=== PATIENT | female | born 1985 | race African-American/Black ===

== ENCOUNTER 2017-09-26 12:35 | Emergency (ER) | payer MEDICARE ==
[~2017-09-26 12:35] MED LIST: ISOVUE-370 76%-LOCM 1 ML ONE
[2017-09-26 13:14] LABS: #Basophils 0.1 thou/uL (0.0-0.2); #Eosinphils 0.1 thou/uL (0.0-0.7); #Lymphocytes 2.5 thou/uL (1.20-3.40); #Monocytes 0.6 thou/uL (0.11-0.59); #Neutrophils 3.5 thou/uL (1.40-6.50); %Basophils 1.9 % (0.0-1.0); %Eosinophils 1.7 % (0.0-10.0); %Lymphocytes 36.5 % (21.0-51.0); %Monocytes 9.3 % (0.0-10.0); %Neutrophils 50.6 % (42.0-75.0); Hemoglobin 13.5 g/dL (12.0-16.0); Mean Corpuscular HGB CONC 32.6 g/dL (32.0-36.0); Mean Corpuscular Hemoglobin 26.3 pg (27.0-31.0); Mean Corpuscular Volume 80.9 fL (78.0-98.0); Mean Platelet Volume 6.4 fL (7.4-10.4); Platelet Count 325 thou/uL (130-400); RBC Distribution Width 15.7 % (11.5-14.5); Red Blood Cell (RBC) Count 5.11 mill/uL (4.20-5.40); White Blood Cell (WBC) Count 6.9 thou/uL (4.8-10.8)
[2017-09-26] MEDS ORDERED: Ondansetron ODT 4 MG TAB ONE (13:24)
[2017-09-26 13:36] LABS: ALT (SGPT) 17 U/L (8-55); AST (SGOT) 20 U/L (5-34); Alkaline Phosphatase 96 U/L (40-150); Anion Gap 14 mmol/L (10-20); BUN (Urea Nitrogen) 7 mg/dL (7.0-18.7); Bilirubin, Total 0.4 mg/dL (0.2-1.2); Calc. Creatinine Clearance 0 mL/min (70-130); Calcium 8.9 mg/dL (7.8-10.44); Carbon Dioxide 23 mmol/L (22-29); Chloride 108 mmol/L (98-107); Estimated GFR-MDRD Greater than 90; Globulin 3.6 g/dL (2.4-3.5); Glucose 96 mg/dL (70-105); Lipase 29 U/L (8-78); Potassium 3.7 mmol/L (3.5-5.1); Protein, Total 7.6 g/dL (6.0-8.3); Sodium 141 mmol/L (136-145)
[2017-09-26 13:52] LABS: Bilirubin Negative (Negative); Blood, Urine Negative (Negative); Clarity TURBID (Clear); Glucose, Urine (Dipstick) Negative (Negative); Leukocyte Small (Negative); Nitrite Negative (Negative); Protein, Urine (Dipstick) Trace mg/dL (Neg-Trace); Specific Gravity, Urine 1.025 (1.002-1.036); Urobilinogen 0.2 mg/dL (0.2-1.0); pH, Urine 5.5 (5.0-9.0)
[2017-09-26 13:56] LABS: Pregnancy Test - Urine (BHCG) Negative (Negative); Pregu Control Background? CLEAR/WHITE (CLR/WHITE); Pregu Control Bar Appear? YES (CONTROL BAR); Specific Gravity 1.025 (1.002-1.036)
[2017-09-26 14:01] LABS: RBC/HPF 0-3 HPF (0-3); WBC/HPF 0-3 HPF (0-3)
[2017-09-26 14:02] LABS: Bacteria/HPF Rare-Few HPF (None Seen); Hyaline Casts/LPF NONE SEEN LPF (0-3 Hyaline); Squamous Epithelial 21-50 HPF (0-3); Trichomonas/HPF 2+ HPF (None Seen)
[2017-09-26] MEDS ORDERED: Ketorolac Tromethamine 30 MG/ML VIAL ONE (14:10)
--- NOTE | 2017-09-26 15:37 | CT ---
CT ABDOMEN AND PELVIS WITH IV CONTRAST: Date: 09/26/17 HISTORY: Right lower quadrant abdominal pain. FINDINGS: The lung bases are clear. The liver, spleen, pancreas, adrenal glands, and kidneys are normal. No free air or lymphadenopathy seen. A tiny amount of free fluid is seen in the pelvis. Uterus and ov marleny are present. The small bowel loops are not abnormally dilated. A normal appearing appendix is p resent. The bony structures are unremarkable. A few scattered diverticula are present in the colon. N o pericolonic inflammatory changes are seen. IMPRESSION: No evidence of appendicitis. POS: [facility]
== END 2017-09-26 16:08 | disposition home or self-care (01) ==
LOC: ERS 12:35
DX: R10.32 Left lower quadrant pain (principal); R10.31 Right lower quadrant pain; Z87.891 Personal history of nicotine dependence
CPT/HCPCS: 74177; 80053; 81003; 81015; 81025; 83690; 85025; 96361; 96374; 96375; 96376; J1885; J2270; Q0162

== ENCOUNTER 2017-12-03 08:33 | Outpatient (CLI) | payer MEDICARE ==
--- NOTE | 2017-12-04 12:43 | NM ---
NUCLEAR MEDICINE THYROID SCAN AND UPTAKE: DATE: 12/04/17. HISTORY: A 32-year-old female with other specified abnormal findings of blood chemistry. R79.89, abnormal TSH. TECHNIQUE: 260 microcuries of I-123 administered p.o. Thyroid scintigraphy obtained in 3 views. Six-hour and 24-hour quantitative radioiodine uptake studies performed. FINDINGS: The radioiodine uptake is fairly homogeneous in the left and right lobes, with no definite hot or col d nodules identified. The 6-hour uptake is 8% (normal range is 6-18%). The 24-hour uptake is 18% (normal range is 10-30%). IMPRESSION: Normal. POS: [facility]
== END 2017-12-03 08:34 | disposition home or self-care (01) ==
LOC: NM 08:33
PROVIDERS: ATTEND Family Medicine
DX: R94.6 Abnormal results of thyroid function studies (principal)
CPT/HCPCS: 78014; A9516

== ENCOUNTER 2018-01-16 13:25 | Emergency (ER) | payer MEDICARE ==
--- NOTE | 2018-01-16 14:10 | RAD ---
2 VIEW CHEST: Date: 01/16/18 INDICATION: Chest pain. COMPARISON: 03/30/11. FINDINGS: There is no consolidation, effusion, or pneumothorax. Cardiac silhouette is stable. IMPRESSION: No focal consolidation. POS: [facility]
[2018-01-16] MEDS ORDERED: Acetaminophen 500 MG TAB ONE (14:12)
[2018-01-16] MEDS ORDERED: Ketorolac Tromethamine 30 MG/ML VIAL ONE (14:12)
[2018-01-16] MEDS ORDERED: Ondansetron HCl/PF 4 MG/2 ML Vial ONE (14:13)
--- NOTE | 2018-01-18 08:35 | EKG ---
Test Reason : CHESTPAIN Blood Pressure : / mmHG Vent. Rate : 092 BPM Atrial Rate : 092 BPM P-R Int : 150 ms QRS Dur : 088 ms QT Int : 356 ms P-R-T Axes : 052 -07 000 degrees QTc Int : 440 ms Normal sinus rhythm Possible Left atrial enlargement Borderline ECG Confirmed by KIMANI CASTAÑEDA ([id number]) on 01/18/2018 8:34:47 AM Referred By: Confirmed By:KIMANI CASTAÑEDA
== END 2018-01-16 15:31 | disposition home or self-care (01) ==
LOC: ERS 13:25
DX: R05 Cough (principal); R11.2 Nausea with vomiting, unspecified; R51 Headache; Z87.891 Personal history of nicotine dependence
CPT/HCPCS: 71046; 93005; 96361; 96374; 96375; J1885; J2405

== ENCOUNTER 2018-03-12 14:26 | Outpatient (CLI) | payer MEDICARE | END 2018-03-12 14:27 | disposition home or self-care (01) | LOC: BICMAMMO 14:26 | DX: Z12.31 Encounter for screening mammogram for malignant neoplasm of breast (principal) | CPT/HCPCS: 77063; 77067 ==

== ENCOUNTER 2018-04-29 12:52 | Emergency (ER) | payer MEDICARE ==
--- NOTE | 2018-04-29 15:23 | ULT ---
DOPPLER VENOUS ULTRASOUND OF THE RIGHT LOWER EXTREMITY: INDICATION: History of right lower extremity soft tissue edema and swelling predominantly on the dorsal aspect of the foot. TECHNIQUE: Kothari scale, color Doppler, and vascular duplex with spectral analysis was performed of the deep venou s structures of right lower extremity. The common femoral vein, superficial femoral vein, popliteal v ein, posterior tibial vein, proximal greater saphenous, and proximal profunda veins were assessed bonnie aterally. FINDINGS: There is normal compression, flow, and augmentation seen within the deep venous structures of the rig ht lower extremity. There is extensive edema involving the subcutaneous tissues of the dorsal foot. There is a suggestio n of a heterogeneous fluid collection within the subcutaneous tissues of the dorsal aspect of the marilee t in the region of interest measuring approximately 1.3 x 3 cm possibly reflective of a small abscess . IMPRESSION: 1. No evidence of deep vein thrombosis in the right lower extremity. 2. Suspected abscess within the dorsal aspect of the foot. Recommend consideration for an MRI of th e right foot with and without contrast for improved characterization. POS: [facility]
--- NOTE | 2018-04-29 15:24 | ULT ---
Please see the separately dictated, concurrently performed right lower right lower extremity DVT ultr asound evaluation for details concerning the soft tissue ultrasound evaluation of the dorsalis pedis of the right foot. POS: [facility]
== END 2018-04-29 15:30 | disposition home or self-care (01) ==
LOC: ERS 12:52
DX: L03.115 Cellulitis of right lower limb (principal); L02.611 Cutaneous abscess of right foot
CPT/HCPCS: 76999

== ENCOUNTER 2018-10-02 01:25 | Emergency (ER) | payer MEDICARE ==
[2018-10-02] MEDS ORDERED: Morphine 4 MG/ML VIAL ONE (01:54)
[2018-10-02] MEDS ORDERED: Ondansetron PF 4 MG/2 ML Vial ONE (01:55)
[2018-10-02 01:56] LABS: #Basophils 0.1 thou/uL (0.0-0.2); #Eosinphils 0.1 thou/uL (0.0-0.7); #Lymphocytes 3.8 thou/uL (1.20-3.40); #Monocytes 0.8 thou/uL (0.11-0.59); #Neutrophils 5.2 thou/uL (1.40-6.50); %Eosinophils 0.7 % (0.0-10.0); %Lymphocytes 38.4 % (21.0-51.0); %Monocytes 8.2 % (0.0-10.0); %Neutrophils 51.8 % (42.0-75.0); Hemoglobin 12.3 g/dL (12.0-16.0); Mean Corpuscular HGB CONC 31.6 g/dL (32.0-36.0); Mean Corpuscular Hemoglobin 24.5 pg (27.0-31.0); Mean Corpuscular Volume 77.6 fL (78.0-98.0); Mean Platelet Volume 7.5 fL (7.4-10.4); Platelet Count 296 thou/uL (130-400); RBC Distribution Width 17.5 % (11.5-14.5); Red Blood Cell (RBC) Count 5.04 mill/uL (4.20-5.40)
[2018-10-02 02:06] LABS: BHCG - Serum Negative (NEGATIVE); Pregs Control Background? CLEAR/WHITE (CLR/WHITE); Pregs Control Bar Appear? YES (CONTROL BAR)
[2018-10-02 02:14] LABS: Bacteria/HPF 1+ HPF (None Seen); Bilirubin Negative (Negative); Blood, Urine Negative (Negative); Clarity Clear (Clear); Glucose, Urine (Dipstick) Normal (Negative); Leukocyte 75 Leu/uL (Negative); Nitrite Negative (Negative); Protein, Urine (Dipstick) Negative (Neg-Trace); RBC/HPF 0-3 HPF (0-3); Squamous Epithelial 0-3 HPF (0-3); Urobilinogen Normal mg/dL (Less than 2)
[2018-10-02 02:52] LABS: ALT (SGPT) 24 U/L (8-55); AST (SGOT) 27 U/L (5-34); Albumin 4.4 g/dL (3.5-5.0); Alkaline Phosphatase 103 U/L (40-150); Anion Gap 15 mmol/L (10-20); BUN (Urea Nitrogen) 10 mg/dL (7.0-18.7); Bilirubin, Total 0.2 mg/dL (0.2-1.2); Calc. Creatinine Clearance 0 mL/min (70-130); Calcium 9.7 mg/dL (7.8-10.44); Carbon Dioxide 20 mmol/L (22-29); Chloride 106 mmol/L (98-107); Estimated GFR-MDRD Greater than 90; Globulin 3.5 g/dL (2.4-3.5); Glucose 114 mg/dL (70-105); Lipase 205 U/L (8-78); Potassium 4.1 mmol/L (3.5-5.1); Protein, Total 7.9 g/dL (6.0-8.3); Sodium 137 mmol/L (136-145)
--- NOTE | 2018-10-02 07:33 | CT ---
PRELIMINARY REPORT/[facility]/EMERGENCY AFTER HOURS PROCEDURE: EXAM: CT Abdomen and Pelvis Without Contrast EXAM DATE/TIME: 10/02/2018 2:18 AM CLINICAL HISTORY: 33 years old, female; Abdominal pain; Right; Prior surgery; Surgery type: Surgical history of tubal l igation; Patient HX: 33 y/o F presents to ED C/O sudden onset of flank pain, with onset at approx 2330 last night. No recent incr activity or exercise. No recent heavy lifting. Denies n/v/d, fever, c hills, urinary symptoms. TECHNIQUE: Imaging protocol: Axial computed tomography images of the abdomen and pelvis without contrast. COMPARISON: No relevant prior studies available. FINDINGS: Liver: Normal. No mass. Gallbladder and bile ducts: Normal. No calcified stones. No ductal dilation. Pancreas: Normal. No ductal dilation. Spleen: Normal. No splenomegaly. Adrenals: Normal. No mass. Kidneys and ureters: Normal. No hydronephrosis. Stomach and bowel: No bowel wall thickening or intestinal obstruction. Appendix: Normal appendix. Intraperitoneal space: Normal. No free air. No significant fluid collection. Vasculature: Normal. No abdominal aortic aneurysm. Lymph nodes: Normal. No enlarged lymph nodes. Bladder: Unremarkable as visualized. Reproductive: Unremarkable as visualized. Bones/joints: No acute fracture. No dislocation. Soft tissues: Unremarkable. IMPRESSION: No acute findings. Thank you for allowing us to participate in the care of your patient. Dictated and Authenticated by: Bob Bradshaw MD 10/02/2018 2:43 AM Central Time ([place] & [place]) FINAL REPORT Exam: ABDOMEN AND PELVIC CT SCAN WITHOUT IV CONTRAST: Emergency after exam TIME: 2:21 AM. DATE: 10/02/2018. Heterogeneous fatty changes within the liver with some areas of fat sparing. No CT evidence for acute appendicitis. No renal calculus or obstruction. No other significant acute process. This report is in agreement with a preliminary report. Transcribed Date/Time: 10/02/2018 7:44 AM
== END 2018-10-02 03:52 | disposition home or self-care (01) ==
LOC: ERS 01:25
DX: R10.9 Unspecified abdominal pain (principal); F17.210 Nicotine dependence, cigarettes, uncomplicated
CPT/HCPCS: 74176; 80053; 81003; 81015; 83690; 84703; 85025; 96361; 96374; 96375; J2270; J2405

== ENCOUNTER 2018-12-23 08:26 | Emergency (ER) | payer MEDICARE ==
[2018-12-23 08:52] LABS: #Basophils 0.1 thou/uL (0.0-0.2); #Eosinphils 0.1 thou/uL (0.0-0.7); #Lymphocytes 2.6 thou/uL (1.20-3.40); %Basophils 1.3 % (0.0-1.0); %Eosinophils 0.8 % (0.0-10.0); %Lymphocytes 29.4 % (21.0-51.0); %Neutrophils 57.5 % (42.0-75.0); Hemoglobin 13.5 g/dL (12.0-16.0); Mean Corpuscular HGB CONC 31.9 g/dL (32.0-36.0); Mean Corpuscular Hemoglobin 25.5 pg (27.0-31.0); Mean Corpuscular Volume 79.8 fL (78.0-98.0); Mean Platelet Volume 6.9 fL (7.4-10.4); Platelet Count 335 thou/uL (130-400); RBC Distribution Width 16.6 % (11.5-14.5); Red Blood Cell (RBC) Count 5.29 mill/uL (4.20-5.40); White Blood Cell (WBC) Count 8.7 thou/uL (4.8-10.8)
[2018-12-23 09:10] LABS: ALT (SGPT) 17 U/L (8-55); AST (SGOT) 19 U/L (5-34); Albumin 4.4 g/dL (3.5-5.0); Alkaline Phosphatase 103 U/L (40-110); Anion Gap 11 mmol/L (10-20); BUN (Urea Nitrogen) 9 mg/dL (7.0-18.7); Bilirubin, Total 0.3 mg/dL (0.2-1.2); Calc. Creatinine Clearance 0 mL/min (70-130); Calcium 9.5 mg/dL (7.8-10.44); Carbon Dioxide 20 mmol/L (22-29); Chloride 107 mmol/L (98-107); Estimated GFR-MDRD Greater than 90; Globulin 3.7 g/dL (2.4-3.5); Glucose 103 mg/dL (70-105); Lipase 29 U/L (8-78); Potassium 4.2 mmol/L (3.5-5.1); Protein, Total 8.1 g/dL (6.0-8.3); Sodium 134 mmol/L (136-145)
[2018-12-23] MEDS ORDERED: Morphine 4 MG/ML VIAL ONE ×3 (09:10→11:46)
[2018-12-23 09:15] LABS: Bilirubin Negative (Negative); Blood, Urine Negative (Negative); Clarity Turbid (Clear); Glucose, Urine (Dipstick) Normal (Negative); Leukocyte 250 Leu/uL (Negative); Mucous/LPF Rare LPF (<2+); Nitrite Negative (Negative); Protein, Urine (Dipstick) 30 mg/dL (Neg-Trace)
[2018-12-23 09:28] LABS: Pregnancy Test - Urine (BHCG) Negative (Negative); Pregu Control Background? CLEAR/WHITE (CLR/WHITE); Pregu Control Bar Appear? YES (CONTROL BAR); Specific Gravity 1.031 (1.002-1.036)
[2018-12-23 09:33] LABS: Bacteria/HPF 1+ HPF (None Seen); Trichomonas/HPF Rare HPF (None Seen)
[2018-12-23] MEDS ORDERED: Ondansetron PF 4 MG/2 ML Vial ONE (09:40)
[2018-12-23] MEDS ORDERED: Ketorolac Tromethamine 30 MG/ML VIAL ONE (09:43)
[2018-12-23] MEDS ORDERED: Lorazepam 2 MG/ML VIAL ONE ×2 (09:51→11:45)
[2018-12-23] MEDS ORDERED: cefTRIAXone\\ROCEPHIN 1 GM VIAL ONE (10:33)
[2018-12-23] MEDS ORDERED: Sodium Chloride 0.9% 100 ML ONE (10:33)
--- NOTE | 2018-12-23 10:50 | CT ---
CT ABDOMEN AND PELVIS WITHOUT CONTRAST STONE PROTOCOL: Date: 12/23/18 HISTORY: Right flank pain. COMPARISON: CT stone protocol dated 10/02/18. FINDINGS: Lung bases are clear. No pericardial effusion. No nephroureterolithiasis or hydroureteronephrosis. No secondary evidence of a recently passed stone. The appendix is visualized and is normal. No dilated loops of large or small bowel. Aortoiliac contour is normal. Noncontrast evaluation of the spleen, pancreas, and adrenal glands are unremarkable. Mild hepatic steatosis. No acute osseous abnormality. IMPRESSION: 1. No nephroureterolithiasis or hydroureteronephrosis. No secondary evidence of a recently passed st one. 2. Mild hepatic steatosis. 3. Normal appendix. POS: [facility]
[2018-12-23] MEDS ORDERED: HYDROmorphone 0.5 MG/0.5 ML SYRINGE ONE (13:30)
== END 2018-12-23 14:15 | disposition home or self-care (01) ==
LOC: ERS 08:26
DX: N12 Tubulo-interstitial nephritis, not specified as acute or chronic (principal); A59.9 Trichomoniasis, unspecified; F17.210 Nicotine dependence, cigarettes, uncomplicated
CPT/HCPCS: 36415; 74176; 80053; 81003; 81015; 81025; 83690; 85025; 96365; 96366; 96372; 96375; 96376; J0696; J1170; J1885; J2060; J2270; J2405; J3490

== ENCOUNTER 2019-02-03 07:05 | Emergency (ER) | payer MEDICARE ==
[2019-02-03] MEDS ORDERED: Ondansetron ODT 4 MG TAB ONE (07:21)
[2019-02-03] MEDS ORDERED: Metoclopramide HCl 10 MG/2 ML VIAL ONE (07:50)
[2019-02-03] MEDS ORDERED: diphenhydrAMINE 50 MG/ML VIAL ONE (07:50)
[2019-02-03 07:53] LABS: #Basophils 0.1 thou/uL (0.0-0.2); #Eosinphils 0.1 thou/uL (0.0-0.7); #Lymphocytes 2.1 thou/uL (1.20-3.40); #Monocytes 0.8 thou/uL (0.11-0.59); #Neutrophils 4.2 thou/uL (1.40-6.50); %Basophils 1.6 % (0.0-1.0); %Eosinophils 0.9 % (0.0-10.0); %Lymphocytes 28.6 % (21.0-51.0); %Neutrophils 57.9 % (42.0-75.0); Mean Corpuscular HGB CONC 32.3 g/dL (32.0-36.0); Mean Corpuscular Volume 80.5 fL (78.0-98.0); Mean Platelet Volume 6.9 fL (7.4-10.4); Platelet Count 273 thou/uL (130-400); RBC Distribution Width 16.7 % (11.5-14.5); White Blood Cell (WBC) Count 7.3 thou/uL (4.8-10.8)
[2019-02-03 08:06] LABS: Pregnancy Test - Urine (BHCG) Negative (Negative); Pregu Control Background? CLEAR/WHITE (CLR/WHITE); Pregu Control Bar Appear? YES (CONTROL BAR); Specific Gravity 1.019 (1.002-1.036)
--- NOTE | 2019-02-03 08:23 | CT ---
CT Brain WO Con History: Headache Comparison: None. Findings: No acute hemorrhage or infarct. No midline shift or mass effect. Ventricular size and extra -axial CSF spaces are normal. Calvarium is intact. Paranasal sinuses and mastoids are clear. Impression: No acute intracranial abnormality.
[2019-02-03 08:31] LABS: ALT (SGPT) 15 U/L (8-55); AST (SGOT) 19 U/L (5-34); Albumin 4.1 g/dL (3.5-5.0); Alkaline Phosphatase 100 U/L (40-110); Anion Gap 11 mmol/L (10-20); BUN (Urea Nitrogen) 9 mg/dL (7.0-18.7); Bilirubin, Total 0.3 mg/dL (0.2-1.2); Calc. Creatinine Clearance 0 mL/min (70-130); Calcium 8.8 mg/dL (7.8-10.44); Carbon Dioxide 23 mmol/L (22-29); Chloride 106 mmol/L (98-107); Estimated GFR-MDRD Greater than 90; Globulin 3.4 g/dL (2.4-3.5); Glucose 94 mg/dL (70-105); Potassium 4.1 mmol/L (3.5-5.1); Protein, Total 7.5 g/dL (6.0-8.3); Sodium 136 mmol/L (136-145)
[2019-02-03] MEDS ORDERED: Lidocaine 1% w/Epinephrine 1:100K 20 ML VIAL ONE (08:34)
== END 2019-02-03 10:03 | disposition left against medical advice (07) ==
LOC: ERS 07:05
DX: I10 Essential (primary) hypertension (principal); R51 Headache; R11.2 Nausea with vomiting, unspecified; F17.210 Nicotine dependence, cigarettes, uncomplicated
CPT/HCPCS: 36415; 70450; 80053; 81025; 85025; 93005; 96365; 96366; 96375; J1200; J2765; Q0162

== ENCOUNTER 2019-02-06 11:57 | Emergency (ER) | payer MEDICARE ==
[2019-02-06] MEDS ORDERED: Acetaminophen 500 MG TAB ONE (12:06)
[2019-02-06] MEDS ORDERED: Magnesium 2 GM/50 ML BAG (IN WATER) ONE (13:59)
[2019-02-06] MEDS ORDERED: methylPREDNISolone Sod Succ/PF 125 MG/2 ML VIAL ONE (13:59)
[2019-02-06] MEDS ORDERED: Metoclopramide HCl 10 MG/2 ML VIAL ONE (13:59)
[2019-02-06] MEDS ORDERED: diphenhydrAMINE 50 MG/ML VIAL ONE (13:59)
[2019-02-06] MEDS ORDERED: Lidocaine 1% (PF) 30 ML VIAL ONE (14:58)
[2019-02-06] MEDS ORDERED: Lorazepam 2 MG/ML VIAL ONE (15:07)
[2019-02-06 16:15] LABS: Color Of CSF Supernatant COLORLESS (Colorless); Tube # 2; Unspun CSF Color COLORLESS (Colorless)
[2019-02-06 16:28] LABS: CSF, Glucose 56 mg/dl (40-70); CSF, Protein 40 mg/dL (15-40)
[2019-02-06 16:36] LABS: CSF Source CSF; Clarity Clear (Clear); Tube # 1; Tube # 3
== END 2019-02-06 17:25 | disposition home or self-care (01) ==
LOC: ERS 11:57
DX: R51 Headache (principal); F17.210 Nicotine dependence, cigarettes, uncomplicated
CPT/HCPCS: 82945; 84157; 87070; 87205; 89051; J1200; J2001; J2060; J2765; J2930; J3475

== ENCOUNTER 2019-10-26 10:24 | Outpatient (CLI) | payer MEDICARE ==
--- NOTE | 2019-10-26 10:52 | RAD ---
XR Chest Pa Lat STANDARD HISTORY: Chest pain on breathing COMPARISON: 05/12/2018 FINDINGS: The heart size is normal. The lungs are well expanded without focal areas of consolidation, pneumothorax or pleural effusions. IMPRESSION: No radiographic evidence of acute cardiopulmonary process.
== END 2019-10-26 10:25 | disposition home or self-care (01) ==
LOC: BICRAD 10:24
PROVIDERS: ATTEND Family Medicine
DX: R07.1 Chest pain on breathing (principal)
CPT/HCPCS: 36415; 71046; 80053; 80061; 83036

== ENCOUNTER 2020-01-21 13:30 | Outpatient (CLI) | payer OTHER | END 2020-01-21 13:31 | disposition home or self-care (01) | LOC: DTY/OP 13:30 | PROVIDERS: ATTEND Surgery | DX: E66.01 Morbid (severe) obesity due to excess calories (principal) | CPT/HCPCS: 97802 ==

== ENCOUNTER 2020-03-03 10:22 | Outpatient (CLI) | payer MEDICARE ==
[2020-03-03 17:15] LABS: SARS-CoV-2 MS2 Positive; SARS-CoV-2 N Gene Negative; SARS-CoV-2 S Gene Negative; SARS-CoV-2 by NAA Not Detected (NotDetected); SARS-CoV-2 orf1ab Negative
== END 2020-03-03 10:23 | disposition home or self-care (01) ==
LOC: LABBT 10:22
PROVIDERS: ATTEND Surgery
DX: Z20.828 Contact with and (suspected) exposure to other viral communicable diseases (principal)
CPT/HCPCS: 87635; U0003

== ENCOUNTER 2020-03-06 08:19 | Outpatient (CLI) | payer MEDICARE ==
--- NOTE | 2020-03-06 09:53 | RAD ---
DOUBLE CONTRAST UPPER GI INDICATION: Dysphagia Fluoroscopic time: 3.2 minutes TECHNIQUE: Thin barium, thick barium and effervescent crystals were utilized for double contrast uppe r GI. FINDINGS: [employer] image: The lung bases are clear. Bowel gas pattern is unobstructed. No suspicious calcification s are evident. No acute osseous abnormality is noted. Upper GI: The esophagus demonstrated normal mucosal pattern, contour and motility. No intraluminal m ass or stricture is identified. No reflux was identified. The stomach and proximal small bowel had a normal appearance. The 12.5 mm barium tablet passed without difficulty. IMPRESSION: 1. Normal exam.
== END 2020-03-06 08:20 | disposition home or self-care (01) ==
LOC: RAD 08:19
PROVIDERS: ATTEND Surgery
DX: R13.10 Dysphagia, unspecified (principal)
CPT/HCPCS: 74246

== ENCOUNTER 2020-05-17 11:15 | Inpatient (IN) | payer MEDICARE ==
[2020-05-22] MEDS ORDERED: Heparin 5,000 UNITS/ML VIAL ONE (09:43)
[2020-05-22] MEDS ORDERED: Fentanyl 100 MCG/2 ML VIAL ONE ×4 (10:06→14:45)
[2020-05-22] MEDS ORDERED: Morphine 4 MG/ML VIAL ONE (10:06)
[2020-05-22] MEDS ORDERED: Labetalol HCl 100 MG/20 ML VIAL ONE (10:12)
[2020-05-22] MEDS ORDERED: Glycopyrrolate 0.2 MG/ML 5 ML SYRINGE ONE (10:12)
[2020-05-22] MEDS ORDERED: Lidocaine 1% PF 5 ML VIAL ONE (10:12)
[2020-05-22] MEDS ORDERED: Dexamethasone 20 MG/5 ML VIAL ONE (10:12)
[2020-05-22] MEDS ORDERED: PROPOFOL 200 MG/20 ML VIAL ONE (10:12)
[2020-05-22] MEDS ORDERED: Rocuronium Bromide 10 MG/ML (10ML VIAL) ONE (10:12)
[2020-05-22] MEDS ORDERED: Ondansetron PF 4 MG/2 ML Vial ONE (10:12)
[2020-05-22] MEDS ORDERED: XYLOCAINE 2%-EPI 1:100,000 20 ML VIAL ONE (10:14)
[2020-05-22] MEDS ORDERED: Bupivacaine 0.25% HCL 30 ML VIAL ONE (10:14)
[2020-05-22] MEDS ORDERED: Midazolam HCl 2 mg/2 ml Vial ONE ×2 (11:39→14:14)
[2020-05-22] MEDS ORDERED: PROPOFOL 40 ML ONE (13:33)
[2020-05-22] MEDS ORDERED: Dextrose 5% in Water 1,000 ML IV PRN (14:00)
[2020-05-22] MEDS ORDERED: diphenhydrAMINE 50 MG/ML VIAL IVP PRN ×2 (14:00→14:22)
[2020-05-22] MEDS ORDERED: hydrALAZINE 20 MG/ML VIAL SLOW IVP PRN (14:00)
[2020-05-22] MEDS ORDERED: Hydrocodone-Acetamin 15 ML UDCUP PO PRN ×2 (14:00→14:26)
[2020-05-22] MEDS ORDERED: Dextrose 50% Abboject 50 ML SYRINGE SLOW IVP PRN (14:00)
[2020-05-22] MEDS ORDERED: Promethazine HCl 25 MG/ML VIAL IM PRN ×3 (14:00→14:23)
[2020-05-22] MEDS ORDERED: Ondansetron PF 4 MG/2 ML Vial IVP PRN ×2 (14:00→14:22)
[2020-05-22] MEDS ORDERED: SUGAMMADEX SODIUM 200 MG/2 ML VIAL ONE (14:01)
[2020-05-22] MEDS ORDERED: diphenhydrAMINE 25 MG CAP PO PRN (14:22)
[2020-05-22] MEDS ORDERED: diphenhydrAMINE 50 MG/ML VIAL IM PRN (14:22)
[2020-05-22] MEDS ORDERED: Zolpidem Tartrate 5 MG TAB PO PRN (14:22)
[2020-05-22] MEDS ORDERED: Naloxone HCl 0.4 mg/ml Vial IV PRN (14:22)
[2020-05-22] MEDS ORDERED: fentaNYL Citrate/PF 2,000 MCG in Sodium Chloride 0.9% 60 ML IV PRN (14:22)
[2020-05-22] MEDS ORDERED: HYDROmorphone 2 MG/ML VIAL SLOW IVP PRN (14:23)
[2020-05-22] MEDS ORDERED: Ondansetron HCl/PF 4 MG/2 ML Vial IVP PRN (14:23)
[2020-05-22] MEDS ORDERED: Promethazine HCl 25 MG/ML VIAL SLOW IVP PRN (14:23)
[2020-05-22] MEDS ORDERED: Communication Order-Pharmacy FS SCH (14:30)
[2020-05-22] MEDS ORDERED: Promethazine HCl 25 MG/ML VIAL ONE (14:33)
[2020-05-22] MEDS ORDERED: HYDROmorphone 2 MG/ML VIAL ONE (15:04)
[2020-05-22] MEDS ORDERED: D5 1/2 NS w/20 mEq KCL 1,000 ML ONE (17:15)
[2020-05-22] MEDS: D5 1/2 NS w/20 mEq KCL 1,000 ML IV SCH ×2 (19:24→21:32)
[2020-05-22] MEDS: Enoxaparin Sodium 40 MG/0.4 ML SYRINGE SC SCH (20:01)
[2020-05-22 22:12] VITALS: BMI 39.7
[2020-05-23] MEDS: D5 1/2 NS w/20 mEq KCL 1,000 ML IV SCH ×2 (01:43→10:11)
[2020-05-23 06:18] LABS: #Lymphocytes 1.9 thou/uL (1.20-3.40); #Monocytes 1.4 thou/uL (0.11-0.59); #Neutrophils 13.7 thou/uL (1.40-6.50); %Basophils 0.2 % (0.0-1.0); %Eosinophils 0.1 % (0.0-10.0); %Lymphocytes 11.3 % (21.0-51.0); %Monocytes 8.3 % (0.0-10.0); Hemoglobin 11.5 g/dL (12.0-16.0); Mean Corpuscular HGB CONC 32.4 g/dL (32.0-36.0); Mean Corpuscular Hemoglobin 26.6 pg (27.0-31.0); Mean Corpuscular Volume 81.9 fL (78.0-98.0); Mean Platelet Volume 7.3 fL (7.4-10.4); Platelet Count 217 thou/uL (130-400); RBC Distribution Width 14.9 % (11.5-14.5); Red Blood Cell (RBC) Count 4.33 mill/uL (4.20-5.40); White Blood Cell (WBC) Count 17.1 thou/uL (4.8-10.8)
[2020-05-23 06:31] LABS: Anion Gap 9 mmol/L (10-20); BUN (Urea Nitrogen) 8 mg/dL (7.0-18.7); Calc. Creatinine Clearance 193 mL/min (70-130); Calcium 8.2 mg/dL (7.8-10.44); Carbon Dioxide 24 mmol/L (22-29); Chloride 104 mmol/L (98-107); Glucose 124 mg/dL (70-105); Potassium 3.9 mmol/L (3.5-5.1); Sodium 133 mmol/L (136-145)
[2020-05-23] MEDS: Pantoprazole 40 MG VIAL IVP SCH (08:49)
[2020-05-23] MEDS ORDERED: FLU VACC QS2020-21(6MOS UP)/PF 60 MCG/0.5 ML SYRINGE IM ONE (09:00)
[2020-05-23] MEDS: Hydrocodone-Acetamin 15 ML UDCUP PO PRN ×4 (10:13→22:22)
[2020-05-23] MEDS ORDERED: Fentanyl 100 MCG/2 ML VIAL SLOW IVP PRN (14:37)
[2020-05-23] MEDS: Ketorolac Tromethamine 30 MG/ML VIAL IVP PRN (15:24)
[2020-05-23] MEDS: Enoxaparin Sodium 40 MG/0.4 ML SYRINGE SC SCH (20:29)
[2020-05-23] MEDS: Fentanyl 100 MCG/2 ML VIAL SLOW IVP PRN (22:10)
[2020-05-24] MEDS: D5 1/2 NS w/20 mEq KCL 1,000 ML IV SCH ×2 (02:04→15:22)
[2020-05-24] MEDS: Ketorolac Tromethamine 30 MG/ML VIAL IVP PRN ×4 (02:08→23:42)
[2020-05-24] MEDS: Hydrocodone-Acetamin 15 ML UDCUP PO PRN ×5 (04:08→21:34)
[2020-05-24 06:48] LABS: #Basophils 0.1 thou/uL (0.0-0.2); #Lymphocytes 1.6 thou/uL (1.20-3.40); #Neutrophils 6.6 thou/uL (1.40-6.50); %Basophils 0.6 % (0.0-1.0); %Eosinophils 0.3 % (0.0-10.0); %Lymphocytes 16.7 % (21.0-51.0); %Monocytes 10.9 % (0.0-10.0); %Neutrophils 71.6 % (42.0-75.0); Hemoglobin 11.7 g/dL (12.0-16.0); Mean Corpuscular HGB CONC 32.4 g/dL (32.0-36.0); Mean Corpuscular Hemoglobin 26.8 pg (27.0-31.0); Mean Corpuscular Volume 82.7 fL (78.0-98.0); Mean Platelet Volume 7.3 fL (7.4-10.4); Platelet Count 188 thou/uL (130-400); RBC Distribution Width 14.9 % (11.5-14.5); Red Blood Cell (RBC) Count 4.34 mill/uL (4.20-5.40); White Blood Cell (WBC) Count 9.3 thou/uL (4.8-10.8)
[2020-05-24 07:06] LABS: Anion Gap 10 mmol/L (10-20); BUN (Urea Nitrogen) 4 mg/dL (7.0-18.7); Calc. Creatinine Clearance 198 mL/min (70-130); Calcium 8.5 mg/dL (7.8-10.44); Carbon Dioxide 23 mmol/L (22-29); Chloride 105 mmol/L (98-107); Glucose 105 mg/dL (70-105); Sodium 134 mmol/L (136-145)
[2020-05-24] MEDS: Pantoprazole 40 MG VIAL IVP SCH (08:19)
[2020-05-24] MEDS: Fentanyl 100 MCG/2 ML VIAL SLOW IVP PRN ×4 (10:46→21:44)
[2020-05-24] MEDS: Enoxaparin Sodium 40 MG/0.4 ML SYRINGE SC SCH (20:08)
[2020-05-25] MEDS: Hydrocodone-Acetamin 15 ML UDCUP PO PRN ×2 (02:57→08:50)
[2020-05-25] MEDS: Fentanyl 100 MCG/2 ML VIAL SLOW IVP PRN (03:30)
[2020-05-25] MEDS: D5 1/2 NS w/20 mEq KCL 1,000 ML IV SCH (06:16)
[2020-05-25] MEDS: Ketorolac Tromethamine 30 MG/ML VIAL IVP PRN (06:51)
[2020-05-25 07:44] VITALS: BP 134/89; TEMP 98.3
[2020-05-25] MEDS: Pantoprazole 40 MG VIAL IVP SCH (08:49)
== END 2020-05-25 10:51 | disposition home or self-care (01) | DRG 621 ==
LOC: SURG A 05-22 09:02 → SJJU 05-22 19:09
PROVIDERS: ADMIT Surgery; ATTEND Surgery
PROC: 0D164ZA Bypass Stomach to Jejunum, Percutaneous Endoscopic Approach (ICD-10-PCS; principal; 2020-05-22)
DX: E66.01 Morbid (severe) obesity due to excess calories (principal); Z20.822 Contact with and (suspected) exposure to COVID-19; K21.9 Gastro-esophageal reflux disease without esophagitis; I10 Essential (primary) hypertension; F17.210 Nicotine dependence, cigarettes, uncomplicated; Z68.39 Body mass index [BMI] 39.0-39.9, adult
CPT/HCPCS: 36415; 80048; 85025; 94760; C9113; J0690; J1100; J1170; J1644; J1650; J1885; J2250; J2270; J2405; J2550; J2704; J3010; J3480; S0020

== ENCOUNTER 2020-06-16 07:22 | Outpatient (CLI) | payer MEDICARE ==
[2020-06-16] MEDS ORDERED: Iopamidol 370 76% 100 ML VIAL ONE (12:05)
[2020-06-16] MEDS ORDERED: Iopamidol 370 76% 50 ML VIAL FS ONE (12:05)
== END 2020-06-16 07:23 | disposition home or self-care (01) ==
LOC: CT 07:22
PROVIDERS: ATTEND Surgery
DX: R10.9 Unspecified abdominal pain (principal)
CPT/HCPCS: 74177; Q9967

== ENCOUNTER 2020-08-09 11:02 | Outpatient (CLI) | payer MEDICARE | END 2020-08-09 11:03 | disposition home or self-care (01) | LOC: BICRAD 11:02 | PROVIDERS: ATTEND Surgery | DX: R10.9 Unspecified abdominal pain (principal) | CPT/HCPCS: 74019 ==

== ENCOUNTER 2020-08-20 23:17 | Observation (INO) | payer MEDICARE ==
[2020-08-21 00:19] LABS: #Basophils 0.1 thou/uL (0.0-0.2); #Eosinphils 0.1 thou/uL (0.0-0.7); #Monocytes 0.6 thou/uL (0.11-0.59); %Basophils 0.8 % (0.0-1.0); %Lymphocytes 33.8 % (21.0-51.0); %Monocytes 7.3 % (0.0-10.0); %Neutrophils 57.2 % (42.0-75.0); Hemoglobin 13.6 g/dL (12.0-16.0); Mean Corpuscular HGB CONC 33.2 g/dL (32.0-36.0); Mean Corpuscular Hemoglobin 27.3 pg (27.0-31.0); Mean Corpuscular Volume 82.3 fL (78.0-98.0); Mean Platelet Volume 7.3 fL (7.4-10.4); Platelet Count 261 thou/uL (130-400); RBC Distribution Width 14.7 % (11.5-14.5); Red Blood Cell (RBC) Count 4.99 mill/uL (4.20-5.40); White Blood Cell (WBC) Count 8.7 thou/uL (4.8-10.8)
[2020-08-21] MEDS ORDERED: Morphine 4 MG/ML VIAL ONE (00:29)
[2020-08-21] MEDS ORDERED: Ondansetron PF 4 MG/2 ML Vial ONE (00:29)
[2020-08-21 00:41] LABS: ALT (SGPT) 17 U/L (8-55); AST (SGOT) 20 U/L (5-34); Albumin 4.1 g/dL (3.5-5.0); Alkaline Phosphatase 100 U/L (40-110); Anion Gap 13 mmol/L (10-20); BUN (Urea Nitrogen) 9 mg/dL (7.0-18.7); Bilirubin, Total 0.3 mg/dL (0.2-1.2); Calc. Creatinine Clearance 0 mL/min (70-130); Calcium 9.6 mg/dL (7.8-10.44); Carbon Dioxide 21 mmol/L (22-29); Chloride 106 mmol/L (98-107); Globulin 3.6 g/dL (2.4-3.5); Glucose 96 mg/dL (70-105); Lipase 42 U/L (8-78); Potassium 4.1 mmol/L (3.5-5.1); Protein, Total 7.7 g/dL (6.0-8.3); Sodium 136 mmol/L (136-145)
[2020-08-21 01:00] LABS: BHCG - Serum Negative (NEGATIVE); Pregs Control Background? CLEAR/WHITE (CLR/WHITE); Pregs Control Bar Appear? YES (CONTROL BAR)
[2020-08-21] MEDS ORDERED: Mag-Al 1200 mg/1200 mg/30 ML UDCUP ONE (02:02)
[2020-08-21] MEDS ORDERED: Lidocaine Viscous Sol 2% 15 ml UD Cup ONE (02:02)
[2020-08-21] MEDS ORDERED: Ketorolac Tromethamine 30 MG/ML VIAL ONE (02:03)
[2020-08-21 02:18] LABS: Pregnancy Test - Urine (BHCG) Negative (Negative); Pregu Control Background? CLEAR/WHITE (CLR/WHITE); Pregu Control Bar Appear? YES (CONTROL BAR)
[2020-08-21 02:27] LABS: Bacteria/HPF None Seen HPF (None Seen); Bilirubin Negative (Negative); Blood, Urine Negative (Negative); Clarity Clear (Clear); Glucose, Urine (Dipstick) Normal (Negative); Ketone, Urine Negative (Negative); Leukocyte 75 Leu/uL (Negative); Nitrite Negative (Negative); Protein, Urine (Dipstick) 20 mg/dL (Neg-Trace); Urobilinogen Normal mg/dL (Less than 2); pH, Urine 6.5 (5.0-9.0)
[2020-08-21 02:29] LABS: Specific Gravity, Urine Greater than 1.060 (1.002-1.036)
[2020-08-21 02:30] LABS: Specific Gravity Greater than 1.060 (1.002-1.036)
[2020-08-21] MEDS ORDERED: Haloperidol Lactate 5 MG/ML VIAL ONE (02:59)
[2020-08-21] MEDS ORDERED: Ondansetron PF 4 MG/2 ML Vial IVP PRN (03:45)
[2020-08-21] MEDS ORDERED: Acetaminophen 325 MG TAB PO PRN (03:45)
[2020-08-21] MEDS ORDERED: Ondansetron ODT 4 MG TAB PO PRN (03:45)
[2020-08-21] MEDS ORDERED: Morphine 4 MG/ML VIAL SLOW IVP PRN (03:46)
[2020-08-21 04:03] VITALS: BMI 32.8
[2020-08-21 04:58] LABS: SARS-CoV-2 NAA Rapid Test Not Detected (NotDetected)
[2020-08-21] MEDS ORDERED: Iopamidol-370 76% 500 ML 1 ML ONE (08:48)
[2020-08-21 12:24] LABS: Lactic Acid 0.7 mmol/L (0.5-2.2)
[2020-08-21] MEDS ORDERED: Pantoprazole 40 MG GRANULES PACKET PO SCH (13:15)
[2020-08-21] MEDS: HYDROcodone/Acetaminophen 5/325 mg Tablet PO PRN (17:10)
[2020-08-22] MEDS: HYDROcodone/Acetaminophen 5/325 mg Tablet PO PRN ×2 (05:10→12:45)
[2020-08-22 06:27] LABS: #Eosinphils 0.1 thou/uL (0.0-0.7); #Lymphocytes 2.3 thou/uL (1.20-3.40); #Monocytes 0.6 thou/uL (0.11-0.59); #Neutrophils 2.4 thou/uL (1.40-6.50); %Basophils 0.7 % (0.0-1.0); %Eosinophils 1.4 % (0.0-10.0); %Lymphocytes 43.1 % (21.0-51.0); %Monocytes 11.6 % (0.0-10.0); %Neutrophils 43.3 % (42.0-75.0); Hemoglobin 12.2 g/dL (12.0-16.0); Mean Corpuscular HGB CONC 31.8 g/dL (32.0-36.0); Mean Corpuscular Hemoglobin 26.5 pg (27.0-31.0); Mean Corpuscular Volume 83.6 fL (78.0-98.0); Mean Platelet Volume 7.7 fL (7.4-10.4); Platelet Count 227 thou/uL (130-400); RBC Distribution Width 14.7 % (11.5-14.5); White Blood Cell (WBC) Count 5.4 thou/uL (4.8-10.8)
[2020-08-22 06:47] LABS: Anion Gap 11 mmol/L (10-20); BUN (Urea Nitrogen) 7 mg/dL (7.0-18.7); Calc. Creatinine Clearance 166 mL/min (70-130); Calcium 9.1 mg/dL (7.8-10.44); Carbon Dioxide 23 mmol/L (22-29); Chloride 108 mmol/L (98-107); Glucose 80 mg/dL (70-105); Potassium 3.9 mmol/L (3.5-5.1); Sodium 138 mmol/L (136-145)
[2020-08-22] MEDS ORDERED: Pantoprazole 40 MG GRANULES PACKET PO SCH (09:00)
[2020-08-22] MEDS ORDERED: Pantoprazole 40 MG VIAL IVP SCH (11:15)
[2020-08-22 11:24] VITALS: BP 102/82; TEMP 98.2
[2020-08-22] MEDS ORDERED: PROPOFOL 200 MG/20 ML VIAL ONE (14:45)
== END 2020-08-22 17:19 | disposition home or self-care (01) ==
LOC: ERS 23:17 → SJJU 08-21 03:03
PROVIDERS: ADMIT Student in an Organized Health Care Education/Training Program; ATTEND Internal Medicine
PROC: 0DJ08ZZ Inspection of Upper Intestinal Tract, Via Natural or Artificial Opening Endoscopic (ICD-10-PCS; principal; 2020-08-22)
DX: R10.13 Epigastric pain (principal); I10 Essential (primary) hypertension; E66.9 Obesity, unspecified; Z68.32 Body mass index [BMI] 32.0-32.9, adult; Z79.899 Other long term (current) drug therapy; Z98.84 Bariatric surgery status; Z20.822 Contact with and (suspected) exposure to COVID-19
CPT/HCPCS: 43235; 74177; 80048; 80053; 81025; 83605; 83690; 84703; 85025 ×2; 96375; 96376; G0378 ×3; U0002; 36415; 81003; 81015; 96372; 96374; C9113; J0500; J1630; J1885; J2270; J2405; J2704; Q0162; Q9967

== ENCOUNTER 2020-09-01 14:26 | Outpatient (CLI) | payer MEDICARE ==
[2020-05-19 17:33] LABS: #Eosinphils 0.1 10x3/uL (0.0-0.5); #Monocytes 0.8 10x3/uL (0.0-1.1); %Basophils 0.6 % (0.0-2.0); %Eosinophils 0.8 % (0.0-6.0); %Lymphocytes 30.5 % (18.0-47.0); %Monocytes 11.2 % (0.0-10.0); %Neutrophils 56.5 % (40.0-75.0); Hemoglobin 13.5 g/dL (12.0-15.5); Mean Corpuscular HGB CONC 31.5 g/dL (32.0-36.0); Mean Corpuscular Hemoglobin 25.6 pg (27.0-33.0); Mean Corpuscular Volume 81.1 fl (81.6-98.3); Mean Platelet Volume 11.3 fl (7.4-10.4); Platelet Count 209 10x3/uL (150-450); RBC Distribution Width 16.6 % (11.5-14.5); Red Blood Cell (RBC) Count 5.28 10x6/uL (3.90-5.03); White Blood Cell (WBC) Count 7.1 10x3/uL (3.5-10.5)
[2020-05-19 17:53] LABS: BHCG - Serum Negative (NEGATIVE); Pregs Control Background? CLEAR/WHITE (CLR/WHITE); Pregs Control Bar Appear? YES (CONTROL BAR)
[2020-05-19 18:01] LABS: ALT (SGPT) 18 U/L (8-55); AST (SGOT) 18 U/L (5-34); Albumin 4.3 g/dL (3.5-5.0); Alkaline Phosphatase 86 U/L (40-110); Anion Gap 16 mmol/L (10-20); BUN (Urea Nitrogen) 13 mg/dL (7.0-18.7); Bilirubin, Total 0.3 mg/dL (0.2-1.2); Calc. Creatinine Clearance 0 mL/min (70-130); Calcium 9.6 mg/dL (7.8-10.44); Carbon Dioxide 22 mmol/L (22-29); Chloride 104 mmol/L (98-107); Globulin 3.4 g/dL (2.4-3.5); Glucose 122 mg/dL (70-105); Potassium 4.4 mmol/L (3.5-5.1); Protein, Total 7.7 g/dL (6.0-8.3); Sodium 138 mmol/L (136-145)
[2020-05-19 18:59] LABS: Hemoglobin A1c 5.8 % (4.0-6.0)
[2020-05-20 04:22] LABS: SARS-CoV-2 PCR by NAA Not Detected (NotDetected)
[2020-09-02 00:19] LABS: SARS-CoV-2 PCR by NAA Not Detected (NotDetected)
== END 2020-09-01 14:27 | disposition home or self-care (01) ==
LOC: LABBT 14:26
PROVIDERS: ATTEND Surgery
DX: Z01.818 Encounter for other preprocedural examination (principal); K45.8 Other specified abdominal hernia without obstruction or gangrene; R10.9 Unspecified abdominal pain
CPT/HCPCS: 71046; 80053; 83036; 84703; 85025; 93005; U0003 ×2; U0005 ×2; 93010

== ENCOUNTER 2020-09-06 11:04 | Day surgery (SDC) | payer MEDICARE ==
[2020-09-05 13:51] VITALS: BMI 31.3
[2020-09-06] MEDS ORDERED: Bupivacaine 0.25% HCL 30 ML VIAL ONE (13:33)
[2020-09-06] MEDS ORDERED: Lidocaine 1% w/Epinephrine 1:100K 20 ML VIAL ONE (13:33)
[2020-09-06] MEDS ORDERED: Fentanyl 100 MCG/2 ML VIAL ONE ×3 (13:40→15:10)
[2020-09-06] MEDS ORDERED: Midazolam HCl 2 mg/2 ml Vial ONE (13:40)
[2020-09-06] MEDS ORDERED: Ondansetron PF 4 MG/2 ML Vial ONE (13:56)
[2020-09-06] MEDS ORDERED: Lidocaine 1% PF 5 ML VIAL ONE (13:56)
[2020-09-06] MEDS ORDERED: Esmolol 100 MG/10 ML VIAL ONE (13:56)
[2020-09-06] MEDS ORDERED: PROPOFOL 200 MG/20 ML VIAL ONE (13:56)
[2020-09-06] MEDS ORDERED: Rocuronium Bromide 10 MG/ML (10ML VIAL) ONE (13:56)
[2020-09-06] MEDS ORDERED: Glycopyrrolate 0.2 MG/ML 5 ML SYRINGE ONE (13:56)
[2020-09-06] MEDS ORDERED: Dexamethasone 20 MG/5 ML VIAL ONE (13:56)
[2020-09-06] MEDS ORDERED: HYDROmorphone 2 MG/ML VIAL ONE (15:06)
[2020-09-06] MEDS ORDERED: Ketorolac Tromethamine 30 MG/ML VIAL ONE (15:10)
== END 2020-09-06 17:05 | disposition home or self-care (01) ==
LOC: SDC 11:04
PROVIDERS: ATTEND Surgery
PROC: 0DQV4ZZ Repair Mesentery, Percutaneous Endoscopic Approach (ICD-10-PCS; principal; 2020-09-06)
DX: K45.8 Other specified abdominal hernia without obstruction or gangrene (principal); I10 Essential (primary) hypertension; K21.9 Gastro-esophageal reflux disease without esophagitis; E66.01 Morbid (severe) obesity due to excess calories; Z68.31 Body mass index [BMI] 31.0-31.9, adult; Z87.891 Personal history of nicotine dependence; Z79.899 Other long term (current) drug therapy; Z98.84 Bariatric surgery status
CPT/HCPCS: J0690; J1100; J1170; J1885; J2250; J2405; J2704; J3010; S0020

== ENCOUNTER 2020-09-15 20:10 | Emergency (ER) | payer MEDICARE ==
[2020-09-15] MEDS ORDERED: Aspirin Chewable 81 MG TAB ONE (20:40)
[2020-09-15 20:56] LABS: #Basophils 0.1 thou/uL (0.0-0.2); #Eosinphils 0.1 thou/uL (0.0-0.7); #Lymphocytes 3.1 thou/uL (1.20-3.40); #Monocytes 0.7 thou/uL (0.11-0.59); #Neutrophils 3.4 thou/uL (1.40-6.50); %Basophils 0.8 % (0.0-1.0); %Eosinophils 1.2 % (0.0-10.0); %Lymphocytes 41.7 % (21.0-51.0); %Neutrophils 46.3 % (42.0-75.0); Hemoglobin 12.8 g/dL (12.0-16.0); Mean Corpuscular HGB CONC 33.1 g/dL (32.0-36.0); Mean Corpuscular Hemoglobin 27.2 pg (27.0-31.0); Mean Corpuscular Volume 82.1 fL (78.0-98.0); Mean Platelet Volume 7.4 fL (7.4-10.4); Platelet Count 278 thou/uL (130-400); RBC Distribution Width 14.6 % (11.5-14.5); Red Blood Cell (RBC) Count 4.72 mill/uL (4.20-5.40); White Blood Cell (WBC) Count 7.4 thou/uL (4.8-10.8)
[2020-09-15 21:08] LABS: ALT (SGPT) 17 U/L (8-55); AST (SGOT) 18 U/L (5-34); Albumin 4.2 g/dL (3.5-5.0); Alkaline Phosphatase 96 U/L (40-110); Anion Gap 14 mmol/L (10-20); BUN (Urea Nitrogen) 12 mg/dL (7.0-18.7); Bilirubin, Total 0.3 mg/dL (0.2-1.2); CK (CPK) 51 U/L (29-168); Calc. Creatinine Clearance 0 mL/min (70-130); Calcium 8.9 mg/dL (7.8-10.44); Carbon Dioxide 21 mmol/L (22-29); Chloride 108 mmol/L (98-107); Globulin 3.1 g/dL (2.4-3.5); Glucose 123 mg/dL (70-105); Lipase 38 U/L (8-78); Potassium 3.7 mmol/L (3.5-5.1); Protein, Total 7.3 g/dL (6.0-8.3); Sodium 139 mmol/L (136-145)
== END 2020-09-15 21:55 | disposition home or self-care (01) ==
LOC: ERS 20:10
DX: R07.89 Other chest pain (principal)
CPT/HCPCS: 71045; 80053; 82550; 83690; 83880; 84484; 85025; 85379; 93005

== ENCOUNTER 2021-02-27 23:12 | Emergency (ER) | payer MEDICARE ==
[2021-02-28] MEDS ORDERED: Ketorolac Tromethamine 30 MG/ML VIAL ONE (01:38)
== END 2021-02-28 01:55 | disposition home or self-care (01) ==
LOC: ERS 23:12
DX: K03.81 Cracked tooth (principal)
CPT/HCPCS: 96372; 99282; J1885

== ENCOUNTER 2021-03-12 10:33 | Emergency (ER) | payer MEDICARE ==
[2021-03-12 11:29] LABS: #Basophils 0.1 thou/uL (0.0-0.2); #Lymphocytes 2.2 thou/uL (1.20-3.40); #Monocytes 0.5 thou/uL (0.11-0.59); #Neutrophils 2.1 thou/uL (1.40-6.50); %Basophils 1.3 % (0.0-1.0); %Eosinophils 0.6 % (0.0-10.0); %Lymphocytes 44.6 % (21.0-51.0); %Monocytes 10.5 % (0.0-10.0); Hemoglobin 12.2 g/dL (12.0-16.0); Mean Corpuscular HGB CONC 32.4 g/dL (32.0-36.0); Mean Corpuscular Hemoglobin 27.7 pg (27.0-31.0); Mean Corpuscular Volume 85.5 fL (78.0-98.0); Mean Platelet Volume 6.8 fL (7.4-10.4); Platelet Count 259 thou/uL (130-400); RBC Distribution Width 14.8 % (11.5-14.5); Red Blood Cell (RBC) Count 4.41 mill/uL (4.20-5.40); White Blood Cell (WBC) Count 4.8 thou/uL (4.8-10.8)
[2021-03-12 11:34] LABS: BHCG - Serum Negative (NEGATIVE); Pregs Control Background? CLEAR/WHITE (CLR/WHITE); Pregs Control Bar Appear? YES (CONTROL BAR)
[2021-03-12 11:46] LABS: ALT (SGPT) 12 U/L (8-55); AST (SGOT) 16 U/L (5-34); Alkaline Phosphatase 74 U/L (40-110); Anion Gap 13 mmol/L (10-20); BUN (Urea Nitrogen) 10 mg/dL (7.0-18.7); Bilirubin, Total 0.3 mg/dL (0.2-1.2); Calc. Creatinine Clearance 0 mL/min (70-130); Calcium 9.1 mg/dL (7.8-10.44); Carbon Dioxide 21 mmol/L (22-29); Chloride 105 mmol/L (98-107); Globulin 3.5 g/dL (2.4-3.5); Glucose 89 mg/dL (70-105); Lipase 23 U/L (8-78); Protein, Total 7.5 g/dL (6.0-8.3); Sodium 135 mmol/L (136-145)
[2021-03-12] MEDS ORDERED: Ondansetron PF 4 MG/2 ML Vial ONE ×2 (12:18→12:29)
[2021-03-12] MEDS ORDERED: Morphine 4 MG/ML VIAL ONE ×3 (12:18→13:22)
[2021-03-12] MEDS ORDERED: Mag-Al 1200 mg/1200 mg/30 ML UDCUP ONE ×2 (14:29→14:40)
[2021-03-12 14:52] LABS: Bilirubin Negative (Negative); Blood, Urine 1+ (Negative); Clarity Turbid (Clear); Glucose, Urine (Dipstick) Normal (Negative); Ketone, Urine Negative (Negative); Leukocyte 500 Leu/uL (Negative); Nitrite 2+ (Negative); Protein, Urine (Dipstick) Negative (Neg-Trace); Specific Gravity, Urine 1.034 (1.002-1.036); Urobilinogen Normal mg/dL (Less than 2); WBC/HPF 21-50 HPF (0-3)
[2021-03-12 14:59] LABS: Bacteria/HPF 4+ HPF (None Seen)
[2021-03-12] MEDS ORDERED: Ketamine 50 MG/ML (10ML VIAL) ONE (16:16)
== END 2021-03-12 17:51 | disposition home or self-care (01) ==
LOC: ERS 10:33
DX: R10.13 Epigastric pain (principal); Z98.84 Bariatric surgery status
CPT/HCPCS: 36415; 71045; 74177; 80053; 81003; 81015; 83605; 83690; 84484; 84703; 85025; 93005; 96374; 96375; J2270; J2405

== ENCOUNTER 2021-05-10 09:14 | Emergency (ER) | payer MEDICARE ==
[2021-05-10 10:24] LABS: #Basophils 0.1 thou/uL (0.0-0.2); #Lymphocytes 2.8 thou/uL (1.20-3.40); #Monocytes 0.6 thou/uL (0.11-0.59); #Neutrophils 2.9 thou/uL (1.40-6.50); %Eosinophils 0.5 % (0.0-10.0); %Lymphocytes 43.7 % (21.0-51.0); %Monocytes 9.6 % (0.0-10.0); %Neutrophils 45.2 % (42.0-75.0); Hemoglobin 12.1 g/dL (12.0-16.0); Mean Corpuscular HGB CONC 31.9 g/dL (32.0-36.0); Mean Corpuscular Volume 84.7 fL (78.0-98.0); Mean Platelet Volume 7.1 fL (7.4-10.4); Platelet Count 264 thou/uL (130-400); RBC Distribution Width 15.5 % (11.5-14.5); Red Blood Cell (RBC) Count 4.49 mill/uL (4.20-5.40); White Blood Cell (WBC) Count 6.4 thou/uL (4.8-10.8)
[2021-05-10 10:32] LABS: BHCG - Serum Negative (NEGATIVE); Pregs Control Background? CLEAR/WHITE (CLR/WHITE); Pregs Control Bar Appear? YES (CONTROL BAR)
[2021-05-10 10:44] LABS: ALT (SGPT) 16 U/L (8-55); AST (SGOT) 24 U/L (5-34); Albumin 4.3 g/dL (3.5-5.0); Alkaline Phosphatase 76 U/L (40-110); Anion Gap 13 mmol/L (10-20); BUN (Urea Nitrogen) 12 mg/dL (7.0-18.7); Bilirubin, Total 0.4 mg/dL (0.2-1.2); Calc. Creatinine Clearance 0 mL/min (70-130); Calcium 9.8 mg/dL (7.8-10.44); Carbon Dioxide 22 mmol/L (22-29); Chloride 107 mmol/L (98-107); Glucose 73 mg/dL (70-105); Lipase 29 U/L (8-78); Potassium 4.6 mmol/L (3.5-5.1); Protein, Total 8.3 g/dL (6.0-8.3); Sodium 137 mmol/L (136-145)
[2021-05-10] MEDS ORDERED: Morphine 4 MG/ML VIAL ONE ×2 (11:37→12:53)
[2021-05-10] MEDS ORDERED: Ondansetron PF 4 MG/2 ML Vial ONE (11:37)
[2021-05-10] MEDS ORDERED: Thiamine HCl 200 MG/2 ML VIAL SLOW IVP SCH (12:30)
[2021-05-10] MEDS ORDERED: Lidocaine Viscous Sol 2% 15 ml UD Cup ONE (13:54)
[2021-05-10] MEDS ORDERED: Mag-Al 1200 mg/1200 mg/30 ML UDCUP ONE (13:54)
== END 2021-05-10 09:18 | disposition home or self-care (01) ==
LOC: ERS 09:14 → EEVIPCON 09:14 → ERS 09:18
DX: R10.13 Epigastric pain (principal)
CPT/HCPCS: 36415; 74177; 80053; 83690; 84703; 85025; 96374; 96375; 96376; J2270; J2405; J3411

== ENCOUNTER 2021-05-10 16:55 | Emergency (ER) | payer OTHER, MEDICARE ==
[2021-05-10] MEDS ORDERED: Lorazepam 1 MG TAB ONE (18:20)
[2021-05-10] MEDS ORDERED: Acetaminophen 500 MG TAB ONE (18:21)
== END 2021-05-10 19:04 | disposition home or self-care (01) ==
LOC: EEVIPCON 16:55 → ERS 16:55
DX: S09.90XA Unspecified injury of head, initial encounter (principal); M54.2 Cervicalgia; F41.9 Anxiety disorder, unspecified; V49.9XXA Car occupant (driver) (passenger) injured in unspecified traffic accident, initial encounter
CPT/HCPCS: 70450; 72125

== ENCOUNTER 2021-06-29 10:00 | Outpatient (CLI) | payer MEDICARE | END 2021-06-29 10:01 | disposition home or self-care (01) | LOC: BICMAMMO 10:00 | PROVIDERS: ATTEND Family Medicine | DX: N64.52 Nipple discharge (principal); L02.91 Cutaneous abscess, unspecified | CPT/HCPCS: 76642; 77066; G0279 ==

== ENCOUNTER 2021-11-08 14:35 | Emergency (ER) | payer MEDICARE ==
[~2021-11-08 14:35] MED LIST changes: -ISOVUE-370 76%-LOCM 1 ML ONE; +Iopamidol-370 76% 500 ML 1 ML ONE
[2021-11-08 15:41] LABS: #Lymphocytes 2.6 thou/uL (1.20-3.40); #Monocytes 0.6 thou/uL (0.11-0.59); #Neutrophils 2.9 thou/uL (1.40-6.50); %Basophils 0.8 % (0.0-1.0); %Eosinophils 0.4 % (0.0-10.0); %Neutrophils 46.8 % (42.0-75.0); Hemoglobin 10.1 g/dL (12.0-16.0); Mean Corpuscular HGB CONC 31.1 g/dL (32.0-36.0); Mean Corpuscular Hemoglobin 24.1 pg (27.0-31.0); Mean Corpuscular Volume 77.5 fL (78.0-98.0); Mean Platelet Volume 7.3 fL (7.4-10.4); Platelet Count 281 thou/uL (130-400); RBC Distribution Width 16.1 % (11.5-14.5); White Blood Cell (WBC) Count 6.2 thou/uL (4.8-10.8)
[2021-11-08 15:47] LABS: BHCG - Serum Negative (NEGATIVE); Pregs Control Background? CLEAR/WHITE (CLR/WHITE); Pregs Control Bar Appear? YES (CONTROL BAR)
[2021-11-08 16:02] LABS: ALT (SGPT) 13 U/L (8-55); AST (SGOT) 19 U/L (5-34); Albumin 4.1 g/dL (3.5-5.0); Alkaline Phosphatase 73 U/L (40-110); Anion Gap 10 mmol/L (10-20); BUN (Urea Nitrogen) 9 mg/dL (7.0-18.7); Bilirubin, Total 0.3 mg/dL (0.2-1.2); Calc. Creatinine Clearance 0 mL/min (70-130); Calcium 9.3 mg/dL (7.8-10.44); Carbon Dioxide 24 mmol/L (22-29); Chloride 106 mmol/L (98-107); Estimated GFR 106; Globulin 3.4 g/dL (2.4-3.5); Lipase 27 U/L (8-78); Potassium 3.4 mmol/L (3.5-5.1); Protein, Total 7.5 g/dL (6.0-8.3); Sodium 137 mmol/L (136-145)
[2021-11-08 16:06] LABS: Glucose 51 mg/dL (70-105)
[2021-11-08 16:56] LABS: Bacteria/HPF None Seen HPF (None Seen); Bilirubin Negative (Negative); Blood, Urine Negative (Negative); Clarity Clear (Clear); Glucose, Urine (Dipstick) Normal (Negative); Ketone, Urine Negative (Negative); Leukocyte 75 Leu/uL (Negative); Nitrite Negative (Negative); Protein, Urine (Dipstick) Negative (Neg-Trace); RBC/HPF 0-3 HPF (0-3); Specific Gravity, Urine 1.019 (1.002-1.036); Squamous Epithelial 0-3 HPF (0-3); Urobilinogen Normal mg/dL (Less than 2); WBC/HPF 0-3 HPF (0-3); pH, Urine 6.5 (5.0-9.0)
[2021-11-08] MEDS ORDERED: Haloperidol Lactate 5 MG/ML VIAL ONE (17:27)
== END 2021-11-08 19:18 | disposition home or self-care (01) ==
LOC: ERS 14:35
DX: R10.13 Epigastric pain (principal)
CPT/HCPCS: 36415; 74177; 80053; 81003; 81015; 83690; 84703; 85025; 96372; J1630; Q9967

== ENCOUNTER 2021-11-09 09:17 | Emergency (ER) | payer MEDICARE ==
[2021-11-09] MEDS ORDERED: diphenhydrAMINE 25 MG CAP ONE (09:43)
== END 2021-11-09 10:20 | disposition home or self-care (01) ==
LOC: ERS 09:17 → EEVIPCON 09:17 → ERS 10:20
DX: F41.9 Anxiety disorder, unspecified (principal); M54.2 Cervicalgia
CPT/HCPCS: 99283

== ENCOUNTER 2023-01-21 09:07 | Emergency (ER) | payer MEDICARE ==
[~2023-01-21 09:07] MED LIST changes: -Iopamidol-370 76% 500 ML 1 ML ONE; +Iopamidol-370 76% 500 ML MDV (1 ML CHARGE) ONE
[2023-01-21] MEDS ORDERED: Ondansetron PF 4 MG/2 ML Vial ONE (09:40)
[2023-01-21] MEDS ORDERED: Ketorolac Tromethamine 30 MG/ML VIAL ONE ×2 (09:40→12:00)
[2023-01-21 09:49] LABS: #Monocytes 0.5 thou/uL (0.11-0.59); #Neutrophils 1.7 thou/uL (1.40-6.50); %Basophils 0.8 % (0.0-1.0); %Eosinophils 0.3 % (0.0-10.0); %Lymphocytes 40.3 % (21.0-51.0); %Monocytes 12.3 % (0.0-10.0); Hematocrit 30.7 % (36.0-47.0); Hemoglobin 9.1 g/dL (12.0-16.0); Mean Corpuscular HGB CONC 29.6 g/dL (32.0-36.0); Mean Corpuscular Hemoglobin 20.2 pg (27.0-31.0); Mean Corpuscular Volume 68.1 fl (78.0-98.0); Mean Platelet Volume 8.8 fL (7.4-10.4); Platelet Count 298 10x3/uL (130-400); Red Blood Cell (RBC) Count 4.51 mill/uL (4.20-5.40); White Blood Cell (WBC) Count 3.7 10x3/uL (4.8-10.8)
[2023-01-21 10:10] LABS: BHCG - Serum Negative (NEGATIVE); Pregs Control Background? CLEAR/WHITE (CLR/WHITE); Pregs Control Bar Appear? YES (CONTROL BAR)
[2023-01-21 10:13] LABS: Albumin 4.4 g/dL (3.5-5.0); Anion Gap 15 mmol/L (10-20); BUN (Urea Nitrogen) 8 mg/dL (7.0-18.7); Bilirubin, Total 0.2 mg/dL (0.2-1.2); Calc. Creatinine Clearance 0 mL/min (70-130); Calcium 9.3 mg/dL (7.8-10.44); Carbon Dioxide 21 mmol/L (22-29); Chloride 108 mmol/L (98-107); Estimated GFR 112; Glucose 80 mg/dL (70-105); Potassium 3.9 mmol/L (3.5-5.1); Protein, Total 7.5 g/dL (6.0-8.3); Sodium 140 mmol/L (136-145)
[2023-01-21 10:13] LABS: Bacteria/HPF 4+ HPF (None Seen); Bilirubin Negative (Negative); Blood, Urine Negative (Negative); CAUTI Indications for Culture Pelvic or flank pain; Clarity Turbid (Clear); Glucose, Urine (Dipstick) Normal (Negative); Ketone, Urine Negative (Negative); Leukocyte 250 Leu/uL (Negative); Nitrite Negative (Negative); Protein, Urine (Dipstick) 20 mg/dL (Neg-Trace); RBC/HPF 0-3 HPF (0-3); Specific Gravity, Urine 1.029 (1.002-1.036); Squamous Epithelial 21-50 HPF (0-3); WBC/HPF 21-50 HPF (0-3)
[2023-01-21 10:14] LABS: ALT (SGPT) 15 U/L (8-55); AST (SGOT) 18 U/L (5-34); Alkaline Phosphatase 65 U/L (40-110); Globulin 3.1 g/dL (2.4-3.5)
[2023-01-21 10:14] LABS: Urine Culture Reflex Yes Yes
[2023-01-21 10:24] LABS: Anisocytosis SLIGHT = 6-15 cells HPF (0-5); CellaVision Operator ID lab.dlt; Hypochromia SLIGHT = 6-15 cells HPF (0-5); Macrocytosis SLIGHT = 6-15 cells HPF (0-5); Ovalocytes SLIGHT = 2-5 cells HPF (0-1); Platelet Adequacy Comment Platelets Normal; Poikilocytosis SLIGHT = 6-15 cells HPF (0-5); Polychromasia SLIGHT = 2-3 cells HPF (0-2); Schistocytes SLIGHT = 2-5 cells HPF (0-1); Target Cells SLIGHT = 2-5 cells HPF (0-1)
[2023-01-21 10:30] LABS: Lipase 40 U/L (8-78)
[2023-01-21] MEDS ORDERED: Dicyclomine 20 MG TAB ONE (12:00)
[2023-01-21] MEDS ORDERED: cefTRIAXone (ROCEPHIN) 1 GM VIAL ONE (12:00)
[2023-01-21] MEDS ORDERED: Sodium Chloride 0.9% 100 ML ONE (12:05)
[2023-01-21] MEDS ORDERED: Lidocaine 2% Viscous Solution 10 ML, Aluminum & Magnesium Hydroxide 30 ML SSW SCH (12:30)
== END 2023-01-21 12:41 | disposition home or self-care (01) ==
LOC: ERS 09:07
DX: N39.0 Urinary tract infection, site not specified (principal); D50.8 Other iron deficiency anemias
CPT/HCPCS: 36415; 74177; 80053; 81001; 83690; 84703; 85025; 87077; 87086; 96365; 96375; 96376; J0696; J1885; J2405; J3490; Q9967

== ENCOUNTER 2023-01-28 22:04 | Emergency (ER) | payer MEDICARE ==
[2023-01-28] MEDS ORDERED: Fluorescein Opthalmic Strip ONE (22:26)
[2023-01-28] MEDS ORDERED: Proparacaine 0.5% Opth 15 ML BOT ONE (22:26)
[2023-01-28] MEDS ORDERED: Ketorolac Tromethamine 30 MG/ML VIAL ONE (22:47)
[2023-01-28] MEDS ORDERED: AcetaZOLAMIDE ER 500 MG CAP PO SCH (23:45)
[2023-01-28] MEDS ORDERED: Pilocarpine 1% Ophth Drops 15 ML BOT L EYE SCH (23:45)
[2023-01-28] MEDS ORDERED: Timolol 0.25% Ophth Soln 5 ml Bottle L EYE SCH (23:45)
[2023-01-29] MEDS ORDERED: Timolol 0.5% Ophth Soln 5 ml Bottle L EYE SCH (00:15)
[2023-01-29] MEDS ORDERED: Ondansetron ODT 4 MG TAB ONE (00:39)
[2023-01-29] MEDS ORDERED: Morphine 4 MG/ML VIAL ONE ×2 (00:40→02:54)
[2023-01-29] MEDS ORDERED: Brimonidine Tartrate 0.2% Ophth Soln 5 ml Bottle L EYE SCH (02:30)
[2023-01-29] MEDS ORDERED: HYDROcodone/Acetaminophen 10/325 mg Tablet ONE (04:22)
== END 2023-01-29 04:45 | disposition short-term general hospital (02) ==
LOC: ERS 22:04
DX: H40.052 Ocular hypertension, left eye (principal); H57.12 Ocular pain, left eye
CPT/HCPCS: 70481; 96372; 96374; J1885; J2270; Q0162

== ENCOUNTER 2023-01-29 18:26 | Emergency (ER) | payer MEDICARE | END 2023-01-29 20:44 | disposition home or self-care (01) | LOC: ERS 18:26 | DX: H57.13 Ocular pain, bilateral (principal) | CPT/HCPCS: 99283 ==

== ENCOUNTER 2023-04-10 08:43 | Emergency (ER) | payer MEDICARE ==
[2023-04-10] MEDS ORDERED: Cyclobenzaprine 10 MG TAB ONE (09:38)
[2023-04-10] MEDS ORDERED: Ketorolac Tromethamine 30 MG (1 mL) VIAL ONE (09:38)
[2023-04-10] MEDS ORDERED: HYDROcodone/Acetaminophen 5/325 mg Tablet ONE (09:38)
== END 2023-04-10 11:30 | disposition home or self-care (01) ==
LOC: ERS 08:43
DX: M62.838 Other muscle spasm (principal)
CPT/HCPCS: 96372; 99283; J1885

== ENCOUNTER 2023-05-12 12:11 | Emergency (ER) | payer MEDICARE ==
[2023-05-12] MEDS ORDERED: Diazepam 5 MG TAB ONE (14:08)
== END 2023-05-12 14:15 | disposition home or self-care (01) ==
LOC: ERS 12:11
DX: M62.830 Muscle spasm of back (principal)
CPT/HCPCS: 99283

== ENCOUNTER 2023-05-26 15:59 | Emergency (ER) | payer MEDICARE | END 2023-05-26 17:25 | disposition home or self-care (01) | LOC: ERS 15:59 | DX: M62.830 Muscle spasm of back (principal); M54.6 Pain in thoracic spine | CPT/HCPCS: 99283 ==

== ENCOUNTER 2023-06-10 14:01 | Outpatient (CLI) | payer MEDICARE | END 2023-06-10 14:02 | disposition home or self-care (01) | LOC: BICRAD 14:01 | PROVIDERS: ATTEND Family Medicine | DX: M54.6 Pain in thoracic spine (principal); M54.2 Cervicalgia | CPT/HCPCS: 72050; 72070 ==

== ENCOUNTER 2024-12-29 01:25 | Emergency (ER) | payer MEDICARE ==
[2024-12-29] MEDS ORDERED: Ondansetron PF 4 MG/2 ML Vial ONE (02:00)
[2024-12-29 02:10] LABS: ALT (SGPT) 9 U/L (Less than 34); AST (SGOT) 32 U/L (11-34); Albumin 4.3 g/dL (3.1-4.5); Alkaline Phosphatase 70 U/L (40-110); Anion Gap 17 mmol/L (10-20); BUN (Urea Nitrogen) 8 mg/dL (7.0-18.7); Bilirubin, Total 0.2 mg/dL (0.3-1.2); Calc. Creatinine Clearance 0 mL/min (70-130); Calcium 9.4 mg/dL (7.8-10.44); Carbon Dioxide 18 mmol/L (22-29); Chloride 108 mmol/L (98-107); Globulin 3.9 g/dL (2.4-3.5); Glucose 101 mg/dL (70-105); Lipase 88 U/L (8-78); Potassium 3.8 mmol/L (3.5-5.1); Sodium 139 mmol/L (136-145)
[2024-12-29 02:12] LABS: BHCG - Serum Negative (NEGATIVE); Pregs Control Background? CLEAR/WHITE (CLR/WHITE); Pregs Control Bar Appear? YES (CONTROL BAR)
[2024-12-29 02:22] LABS: #Basophils 0.04 10x3/uL (0.0-0.2); #Eosinophils 0.04 10x3/uL (0.0-0.7); #Monocytes 0.54 10x3/uL (0.11-0.59); #Neutrophils 2.68 10x3/uL (1.40-6.50); %Basophils 0.7 % (0.0-1.0); %Eosinophils 0.7 % (0.0-10.0); %Lymphocytes 43.1 % (21.0-51.0); %Monocytes 9.3 % (0.0-10.0); %Neutrophils 46.0 % (42.0-75.0); Hematocrit 31.6 % (36.0-47.0); Hemoglobin 8.8 g/dL (12.0-16.0); Mean Corpuscular Hemoglobin 19.4 pg (27.0-31.0); Mean Corpuscular Volume 69.6 fL (78.0-98.0); Platelet Count 316 10x3/uL (130-400); Red Blood Cell (RBC) Count 4.54 mill/uL (4.20-5.40); White Blood Cell (WBC) Count 5.82 10x3/uL (4.8-10.8)
[2024-12-29 03:15] LABS: Microcytosis SLIGHT = 6-15 cells HPF (0-5); Platelet Adequacy Comment Platelets Normal; Target Cells SLIGHT = 2-5 cells HPF (0-1)
[2024-12-29] MEDS ORDERED: Ketorolac Tromethamine 30 MG (1 mL) VIAL ONE (03:15)
[2024-12-29] MEDS ORDERED: Iopamidol-370 76% 500 ML MDV (1 ML CHARGE) ONE (12:43)
== END 2024-12-29 03:50 | disposition home or self-care (01) ==
LOC: ERS 01:25
DX: R10.9 Unspecified abdominal pain (principal); R79.89 Other specified abnormal findings of blood chemistry
CPT/HCPCS: 74177; 80053; 83690; 84703; 85025; J1885; Q9967; 96372; 96374; 96375; 96376